=== PATIENT | female | born 1940 | race Caucasian/White ===

== ENCOUNTER 2017-03-17 08:48 | Emergency (ER) | payer MEDICARE ==
[~2017-03-17] VITALS: Ht 162.6 cm; Wt 79.0 kg
[~2017-03-17 08:48] MED LIST: ATOR10 PO; GLUCTAB OR; LORT7.5T3 PO; MEDR4PAK3 PO; META800 PO; NAPR550 PO; OMEP20CA5 PO; OXYB10TA OR; TOPR50TA PO; TRAM50TA PO
[2017-03-17 08:50] VITALS: BP 182/80; PULSE 115; RESP 16; TEMP 97.9; O2SAT 95
[2017-03-17] MEDS ORDERED: BENZ100 PO (09:02)
[2017-03-17] MEDS ORDERED: MULT-65 PO (09:02)
[2017-03-17] MEDS ORDERED: SIMV10TA PO (09:02)
[2017-03-17] MEDS ORDERED: METF500T PO (09:02)
[2017-03-17] MEDS ORDERED: METO25TA3 PO (09:02)
[2017-03-17] MEDS ORDERED: LEVA500T33 PO (09:02)
[2017-03-17] MEDS ORDERED: RANI150T PO (09:02)
[2017-03-17] MEDS ORDERED: OXYB5TAB8 PO (09:02)
[2017-03-17] MEDS ORDERED: ASPI81CH6 CHEW (09:02)
[2017-03-17] MEDS ORDERED: VITA250C3 CHEW (09:02)
--- NOTE | 2017-03-17 09:11 | PD ---
HPI Chief Complaint: Allergic/Adverse Reaction Time Seen by Provider: 09:03 Travel History International Travel<30 days: No Contact w/Intl Traveler<30days: No Traveled to known affect area: No History of Present Illness HPI 76-year-old female with PMH of HTN, DM presents to the ED for evaluation of "closing throat" after using an albuterol treatment at home this morning. Symptoms resolved on presentation. She states that the treatment was "about an hour ago." She saw her primary care, Dr. Osborn on Saturday and was prescribed Levaquin, Tessalon and albuterol nebulizer treatments at home for an upper respiratory infection. She states that she's taken one dose of the Levaquin and experienced cramping in her hands as well as pain in the tendon on the back of her right leg. On presentation she endorses clear rhinorrhea, nonproductive cough. She denies fever, chills, nausea, vomiting, difficulties swallowing her own secretions, wheezing. She states that overall her symptoms are improving. She's used albuterol treatments every 6 hours since Saturday. PFSH Past Medical History Cancer: Yes (HX OF UTERINE CA) High Cholesterol: Yes Diabetes: Yes Patient Takes Glucophage: Yes Diminished Hearing: No Hypertension: Yes Immunizations Current: No Influenza Vaccination: No ?: Not Menopausal: Yes Past Surgical History Hysterectomy: Yes (1967) Social History Alcohol Use: Yes (WINE DAILY) Tobacco Use: No Substance Use: No Allergies-Medications (Allergen,Severity, Reaction): Coded Allergies: codeine (Unverified Allergy, Severe, TONGUE SWELLING, 03/17/17) erythromycin base (Unverified Allergy, Severe, 03/17/17) lidocaine (Unverified Allergy, Severe, 03/17/17) ALL LEXIS meperidine (Unverified Allergy, Mild, GI UPSET, 03/17/17) Reported Meds & Prescriptions Reported Meds & Active Scripts Active Doxycycline Hyclate 100 Mg Cap 100 Mg PO BID 7 Days Reported Vitamin C (Ascorbic Acid) 250 Mg Chew 250 Mg CHEW DAILY Multi-Vitamin Daily (Multiple Vitamin) 1 Tab Tab 1 Tab PO DAILY Aspirin Low Dose (Aspirin) 81 Mg Chew 81 Mg CHEW DAILY Tessalon Perles (Benzonatate) 100 Mg Cap 100 Mg PO TID PRN Levaquin (Levofloxacin) 500 Mg Tablet 500 Mg PO BID Metformin (Metformin HCl) 500 Mg Tab 500 Mg PO BIDPC Ditropan (Oxybutynin Chloride) 5 Mg Tab 15 Mg PO DAILY Ranitidine (Ranitidine HCl) 150 Mg Tab 150 Mg PO BID Simvastatin 10 Mg Tab 10 Mg PO DAILY Metoprolol Tartrate 25 Mg Tab 25 Mg PO BID Review of Systems Except as stated in HPI: all other systems reviewed are Neg Physical Exam Narrative GENERAL: Well-nourished, well-developed white female in no acute distress. SKIN: Warm and dry. HEAD: Normocephalic. Atraumatic. EYES: No scleral icterus. No injection or drainage. PERRLA. EOMI. ENT: Pearly bill tympanic membranes bilaterally. Nasal mucosa is moist. Oropharynx without erythema, edema or exudate. Uvula midline. Airway patent. NECK: Supple, trachea midline. No JVD or lymphadenopathy. CARDIOVASCULAR: Regular rate and rhythm without murmurs, gallops, or rubs. RESPIRATORY: Breath sounds clear and equal bilaterally. No wheezes. No accessory muscle use. GASTROINTESTINAL: Abdomen soft, non-tender, nondistended. + Bowel sounds MUSCULOSKELETAL: No cyanosis, or edema. BACK: Nontender without obvious deformity. No CVA tenderness. Data Data Last Documented VS Vital Signs Date Time Temp Pulse Resp B/P (MAP) Pulse Ox O2 Delivery O2 Flow Rate FiO2 03/17/17 09:12 99 20 162/72 (102) 93 Room Air 03/17/17 08:50 97.9 Orders Orders Ed Discharge Order (03/17/17 09:19) MDM Medical Decision Making Medical Screen Exam Complete: Yes Emergency Medical Condition: Yes Differential Diagnosis anxiety versus allergic reaction versus airway obstruction versus other Narrative Course 76-year-old female with PMH of HTN, DM presents to the ED for evaluation of "closing throat" after using an albuterol treatment about an hour ago. Symptoms resolved on presentation. She saw her primary care, Dr. Robles, on Saturday and was prescribed Levaquin, Tessalon and albuterol nebulizer treatments at home for a URI. She states that she's taken one dose of the Levaquin and experienced cramping in her hands as well as pain in the tendon on the back of her right leg. On presentation she endorses clear rhinorrhea, nonproductive cough. She denies fever, chills, nausea, vomiting, wheezing. She states that overall her symptoms are improving. She's used 2 albuterol treatments at home total. Vitals reviewed O2 sats 95% on room air. Physical exam reveals a nontoxic-appearing white female in no acute respiratory distress. Oropharynx without erythema, edema, exudate. Uvula midline. Airway patent. Breath sounds are clear and equal bilaterally. I suspect that her symptoms are related to anxiety. 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 She is prescribed doxycycline 100 mg twice a day 7 days. She is instructed to discontinue nebulizer treatments, call Dr. Anurag patrick during the week for his recommendations. We discussed reasons to return to the ED. She indicated understanding of instructions and is agreeable to the care plan. The patient is stable and discharged home. Diagnosis Primary Impression: Idiosyncratic reaction to medication after proper dose Qualified Codes: T50.905A - Adverse effect of unspecified drugs, medicaments and biological substances, initial encounter Referrals: Mundo Robles DO Patient Instructions: General Instructions, Upper Respiratory Infection (ED) Additional Instructions: Rest, hydrate. Stop taking Levaquin. Stop taking albuterol treatments. Begin taking doxycycline as prescribed. Call Dr. Margaret PATRICK Saturday after the for his recommendations. Return to the ED for worsening symptoms or any urgent or emergent medical condition. Med/Other Pt SpecificInfo: Prescription(s) given Scripts Doxycycline Hyclate (Doxycycline Hyclate) 100 Mg Cap 100 MG PO BID for Infection for 7 Days, #14 CAP 0 Refills Prov: Chance Cooper MD 03/17/17 Disposition: 01 DISCHARGE HOME Condition: Stable Audra Singh Mar 17, 2017 09:11
[2017-03-17 09:12] VITALS: BP 162/72; PULSE 79; PULSE 99; RESP 20; O2SAT 93
[2017-03-17] MEDS ORDERED: DOXY100C PO (09:18)
[2017-03-17 09:26] VITALS: O2SAT 96
== END 2017-03-17 09:31 | disposition home or self-care (01) ==
LOC: PHEFT 08:48
DX: T50.905A Adverse effect of unspecified drugs, medicaments and biological substances, initial encounter (principal); I10 Essential (primary) hypertension; E11.9 Type 2 diabetes mellitus without complications; Z79.84 Long term (current) use of oral hypoglycemic drugs
CPT/HCPCS: 99283